=== PATIENT | female | born 1995 | race African-American/Black ===

== ENCOUNTER 2016-12-02 10:56 | Emergency (ER) | payer OTHER, BC ==
[~2016-12-02] VITALS: Ht 157.5 cm; Wt 77.1 kg
[~2016-12-02 10:56] MED LIST: FLAGYL500 MG PO; IBUPROFEN 600600 M1 PO; MACROBID 100 M100 M1 PO; PRENATAL; TERAZOL 380 MG VG; ZOFRAN ODT4 MG PO
[2016-12-02] MEDS ORDERED: NORCO 5-325 TA1 EACH PO (13:11)
[2016-12-02] MEDS ORDERED: IBUPROFEN 600600 M1 PO (13:11)
[2016-12-02 13:42] VITALS: BP 140/75
== END 2016-12-02 17:48 | disposition home or self-care (01) ==
LOC: ER 10:56
DX: S93.602A Unspecified sprain of left foot, initial encounter (principal); W10.9XXA Fall (on) (from) unspecified stairs and steps, initial encounter; Y93.89 Activity, other specified; Y92.89 Other specified places as the place of occurrence of the external cause; Y99.8 Other external cause status

== ENCOUNTER 2018-11-22 22:12 | Emergency (ER) | payer OTHER ==
[~2018-11-22] VITALS: Ht 162.6 cm; Wt 68.0 kg
[~2018-11-22 22:12] MED LIST changes: +NORCO 5-325 TA1 EACH PO
[2018-11-23 00:20] VITALS: BP 127/76
== END 2018-11-22 23:30 | disposition still patient (30) ==
LOC: ER 22:12
DX: S59.802A Other specified injuries of left elbow, initial encounter (principal); W22.8XXA Striking against or struck by other objects, initial encounter; Y92.89 Other specified places as the place of occurrence of the external cause; Y93.E5 Activity, floor mopping and cleaning; Y99.8 Other external cause status

== ENCOUNTER 2019-02-24 09:47 | Emergency (ER) | payer OTHER ==
[~2019-02-24] VITALS: Ht 157.5 cm; Wt 77.1 kg
[2019-02-24 10:19] LABS: URINE BILIRUBIN NEGATIVE (Negative); URINE BLOOD 3+ (Negative); URINE CLARITY SL CLOUDY; URINE COLOR YELLOW; URINE GLUCOSE-RANDOM* NEGATIVE (Negative); URINE KETONES NEGATIVE (Negative); URINE NITRITE-REFLEX NEGATIVE (Negative); URINE PROTEIN (DIPSTICK) TRACE (Negative); URINE SPECIFIC GRAVITY 1.025 (1.005-1.035); URINE UROBILINOGEN 0.2 E.U./dl (0.2-1.0)
[2019-02-24 10:21] LABS: URINE LEUKOCYTES-REFLEX 1+ (Negative)
[2019-02-24 10:31] LABS: CASTS None Seen /LPF (None Seen); MUCUS 0-3 Light strn/LPF (None Seen); SQUAMOUS >10 Many /LPF (0-3); URINE RBC 3-10 Few /HPF (0-2); URINE WBC-REFLEX 6-15 Few /HPF (0-5)
[2019-02-24 10:32] LABS: AMORPHOUS URATES Moderate /LPF (None Seen)
[2019-02-24 11:02] LABS: HEMOGLOBIN 13.2 gm/dL (12.0-15.0); MCH 27.9 pg (26.0-34.0); MCHC 33.1 g/dL (28.0-37.0); MCV 84.2 fL (80.0-100.0); PLATELET COUNT 208 thou/uL (150-400); RBC 4.75 mil/uL (4.20-5.00); RDW 16.8 % (10.5-14.5); WBC 21.1 thou/uL (4.0-11.0)
[2019-02-24 11:10] LABS: CALCIUM 9.2 mg/dL (8.5-10.1); CREATININE 0.8 mg/dL (0.6-1.0); POTASSIUM 3.2 mmol/L (3.5-5.1)
[2019-02-24 11:15] LABS: TOTAL BILIRUBIN 0.7 mg/dL (<0.1-1.0)
[2019-02-24 11:41] LABS: ABSOLUTE NEUTROPHILS 18.8 thou/uL (1.4-8.2); PLATELET ESTIMATE NORMAL
[2019-02-24] MEDS ORDERED: NAPROSYN500 MG PO (11:56)
[2019-02-24] MEDS ORDERED: CEPACOL SORE T1 EAC7 PO (11:56)
[2019-02-24] MEDS ORDERED: ONDANSETRON HCL4 M2 PO (11:56)
[2019-02-24 12:45] VITALS: BP 136/60
== END 2019-02-24 12:47 | disposition home or self-care (01) ==
LOC: ER 09:47
PROVIDERS: Emergency Medicine
DX: J02.0 Streptococcal pharyngitis (principal); R11.2 Nausea with vomiting, unspecified

== ENCOUNTER 2019-04-11 06:32 | Emergency (ER) | payer OTHER ==
[~2019-04-11] VITALS: Ht 157.5 cm; Wt 75.3 kg
[~2019-04-11 06:32] MED LIST changes: +CEPACOL SORE T1 EAC7 PO; +NAPROSYN500 MG PO; +ONDANSETRON HCL4 M2 PO
[2019-04-11 07:04] LABS: HEMATOCRIT 38.2 % (37.0-47.0); HEMOGLOBIN 12.5 gm/dL (12.0-15.0); MCH 27.8 pg (26.0-34.0); MCHC 32.8 g/dL (28.0-37.0); MCV 84.8 fL (80.0-100.0); PLATELET COUNT 198 thou/uL (150-400); RDW 16.8 % (10.5-14.5); WBC 14.5 thou/uL (4.0-11.0)
[2019-04-11 07:05] LABS: URINE BILIRUBIN NEGATIVE (Negative); URINE BLOOD 1+ (Negative); URINE CLARITY CLEAR; URINE COLOR YELLOW; URINE GLUCOSE-RANDOM* NEGATIVE (Negative); URINE KETONES NEGATIVE (Negative); URINE NITRITE-REFLEX NEGATIVE (Negative); URINE PROTEIN (DIPSTICK) NEGATIVE (Negative); URINE UROBILINOGEN 0.2 E.U./dl (0.2-1.0)
[2019-04-11 07:18] LABS: URINE LEUKOCYTES-REFLEX 1+ (Negative)
[2019-04-11 07:23] LABS: CALCIUM 8.9 mg/dL (8.5-10.1); CREATININE 0.8 mg/dL (0.6-1.0); POTASSIUM 3.4 mmol/L (3.5-5.1)
[2019-04-11 07:29] LABS: ALBUMIN 3.8 g/dL (3.4-5.0); TOTAL BILIRUBIN 0.6 mg/dL (<0.1-1.0); TOTAL PROTEIN 7.7 g/dL (6.4-8.2)
[2019-04-11 07:37] LABS: CASTS None Seen /LPF (None Seen); MUCUS 4-6 Moderate strn/LPF (None Seen); SQUAMOUS >10 Many /LPF (0-3)
[2019-04-11 07:38] LABS: BACTERIA-REFLEX 1-9 Few /HPF (None Seen); CRYSTALS None Seen /LPF (None Seen); URINE RBC 0-2 Rare /HPF (0-2); URINE WBC-REFLEX 0-5 Rare /HPF (0-5)
[2019-04-11 08:22] LABS: ABSOLUTE NEUTROPHILS 11.9 thou/uL (1.4-8.2); PLATELET ESTIMATE NORMAL
[2019-04-11] MEDS ORDERED: REGLAN 10 MG TA10 MG PO (10:13)
[2019-04-11] MEDS ORDERED: NAPROSYN500 MG PO (10:13)
[2019-04-11] MEDS ORDERED: LIDOCAINE HC28.35 GM TOP ×2 (10:19)
[2019-04-11 10:33] VITALS: BP 121/64
== END 2019-04-11 10:34 | disposition home or self-care (01) ==
LOC: ER 06:32
PROVIDERS: Emergency Medicine
DX: N76.0 Acute vaginitis (principal); B34.9 Viral infection, unspecified

== ENCOUNTER 2019-04-13 12:09 | Emergency (ER) | payer OTHER ==
[~2019-04-13] VITALS: Ht 157.5 cm; Wt 75.3 kg
[~2019-04-13 12:09] MED LIST changes: +LIDOCAINE HC28.35 GM TOP; +REGLAN 10 MG TA10 MG PO
[2019-04-13 12:48] LABS: URINE BILIRUBIN NEGATIVE (Negative); URINE BLOOD NEGATIVE (Negative); URINE CLARITY CLEAR; URINE COLOR YELLOW; URINE GLUCOSE-RANDOM* NEGATIVE (Negative); URINE KETONES NEGATIVE (Negative); URINE LEUKOCYTES-REFLEX 1+ (Negative); URINE NITRITE-REFLEX NEGATIVE (Negative); URINE PROTEIN (DIPSTICK) NEGATIVE (Negative); URINE UROBILINOGEN 0.2 E.U./dl (0.2-1.0)
[2019-04-13 12:55] LABS: BACTERIA-REFLEX 1-9 Few /HPF (None Seen); CASTS None Seen /LPF (None Seen); CRYSTALS None Seen /LPF (None Seen); SQUAMOUS 4-10 Moderate /LPF (0-3); URINE RBC 0-2 Rare /HPF (0-2); URINE WBC-REFLEX 0-5 Rare /HPF (0-5)
[2019-04-13] MEDS ORDERED: VALACYCLOVIR1000 MG PO (14:34)
[2019-04-13] MEDS ORDERED: NORCO 5-325 TA1 EAC1 PO (14:34)
[2019-04-13] MEDS ORDERED: FLAGYL500 M1 PO (14:34)
[2019-04-13 14:54] VITALS: BP 145/84
[2019-04-16 10:21] LABS: HSV PCR SOURCE BLISTER
[2019-04-16 14:09] LABS: HSV 1 DNA Negative (Negative); HSV 2 DNA Positive (Negative)
== END 2019-04-13 14:52 | disposition home or self-care (01) ==
LOC: ER 12:09
PROVIDERS: Physician Assistant
DX: J02.0 Streptococcal pharyngitis (principal); N76.0 Acute vaginitis; B00.9 Herpesviral infection, unspecified